=== PATIENT | female | born 2000 | race Caucasian/White ===

== ENCOUNTER 2018-12-13 15:02 | Outpatient (CLI) | payer OTHER ==
--- NOTE | 2018-12-13 15:54 | ULT ---
Bilateral renal ultrasound CLINICAL INDICATION: Patient with right flank pain for one week and hematuria. Patient is 6 1/2 months . COMPARISON: None FINDINGS: Right kidney: There is moderate right hydronephrosis of uncertain etiology based on this examination. No renal mass or renal calculus is identified on the right.The right kidney measures 10.4 cm x 6.1 cm. Left kidney: There is no evidence of a renal mass, renal calculus, or hydronephrosis. The left kidney measures 10.8 cm x 4.9 cm. Urinary bladder: Partially distended and grossly normal in appearance. The left ureteral jet is visua lized. agricultural technician questions trace right ureteral jet visualized, but this is difficult to definitely discern on this exam. IMPRESSION: 1. Moderate right hydronephrosis, and the degree of hydronephrosis is more than typically expected fo r an intrauterine gestation. The exact etiology is uncertain. 2. Normal-appearing left kidney without hydronephrosis. 3. Findings discussed with Dr. Cleveland on 12/13/2018 at 1549 hours.
== END 2018-12-13 15:03 | disposition home or self-care (01) ==
LOC: BICULT 15:02
PROVIDERS: ATTEND Advanced Practice Midwife
DX: R31.9 Hematuria, unspecified (principal); N13.30 Unspecified hydronephrosis
CPT/HCPCS: 76770

== ENCOUNTER 2018-12-30 19:53 | Inpatient (IN) | payer OTHER ==
[2018-12-30 20:53] LABS: #Eosinphils 0.3 thou/uL (0.0-0.7); #Lymphocytes 2.7 thou/uL (1.20-3.40); #Monocytes 1.1 thou/uL (0.11-0.59); #Neutrophils 10.3 thou/uL (1.40-6.50); %Basophils 0.1 % (0.0-1.0); %Eosinophils 1.8 % (0.0-10.0); %Lymphocytes 18.7 % (28.0-48.0); %Monocytes 7.4 % (0.0-4.0); %Neutrophils 71.9 % (31.0-61.0); Hemoglobin 11.1 g/dL (12.0-16.0); Mean Corpuscular HGB CONC 33.6 g/dL (32.0-36.0); Mean Corpuscular Hemoglobin 30.1 pg (25.0-35.0); Mean Corpuscular Volume 89.7 fL (78.0-98.0); Mean Platelet Volume 7.6 fL (7.4-10.4); Platelet Count 243 thou/uL (130-400); RBC Distribution Width 11.8 % (11.5-14.5); Red Blood Cell (RBC) Count 3.69 mill/uL (4.00-5.20); White Blood Cell (WBC) Count 14.3 thou/uL (4.8-10.8)
[2018-12-30 21:19] LABS: ALT (SGPT) 11 U/L (8-55); AST (SGOT) 11 U/L (5-34); Albumin 3.7 g/dL (3.5-5.0); Alkaline Phosphatase 100 U/L (40-100); Anion Gap 11 mmol/L (10-20); BUN (Urea Nitrogen) 7 mg/dL (7.0-18.7); Bilirubin, Total 0.2 mg/dL (0.2-1.2); Calc. Creatinine Clearance 0 mL/min (70-130); Calcium 8.6 mg/dL (7.8-10.44); Carbon Dioxide 21 mmol/L (22-29); Chloride 105 mmol/L (98-107); Estimated GFR-MDRD Greater than 90; Glucose 78 mg/dL (70-105); Lipase 23 U/L (8-78); Potassium 3.7 mmol/L (3.5-5.1); Protein, Total 6.7 g/dL (6.0-8.3); Sodium 133 mmol/L (136-145)
[2018-12-30 21:22] LABS: PTT 27.2 SEC (22.9-36.1); Prothrombin Time 13.3 SEC (12.0-14.7)
[2018-12-30 21:57] LABS: Bilirubin Negative (Negative); Blood, Urine Small (Negative); Glucose, Urine (Dipstick) Negative (Negative); Leukocyte Trace (Negative); Nitrite Negative (Negative); Protein, Urine (Dipstick) 30 mg/dL (Neg-Trace); Urobilinogen 0.2 mg/dL (Less than 2)
[2018-12-30 22:01] LABS: Clarity Hazy (Clear)
[2018-12-30 22:02] LABS: Bacteria/HPF None Seen HPF (None Seen); Squamous Epithelial 0-3 HPF (0-3)
--- NOTE | 2018-12-30 22:15 | PDOC.EVN ---
Event Note - Event Note Event Note: OBGYN Patient seen at bedside at 2145 Dictated Admitted to await IR perc tube tomorrow for obstructive nephropathy at 28 weeks.
[2018-12-30] MEDS ORDERED: cefTRIAXone\\ROCEPHIN 1 GM VIAL ONE (22:18)
--- NOTE | 2018-12-30 22:46 | HP ---
TIME OF EVALUATION: 2145 hours until 2200 hours. LOCATION: ER. BED: 7. REASON FOR EVALUATION: 1. The patient with known right hydronephrosis due to ureteral obstruction from dextrorotation of the uterus. 2. The patient of Betsy Megha. HISTORY OF PRESENT ILLNESS: This is a 18-year-old G2, P1, at 28 weeks and 2 days with a stated EDC of 03/22. She states that she was having some increase in lower back discomfort, but denies any fever. She saw Dr. Negrito Mcintyre with Urology this last , who recommended a percutaneous nephrostomy tube. She has had no complications at this time. She has good movement. She just took her 1 hour glucose tolerance test earlier last week, but she does not have the results of that. REVIEW OF SYSTEMS: Complete review of systems was checked and is otherwise negative unless specified in the HPI. PAST MEDICAL HISTORY: Negative. PAST SURGICAL HISTORY: Includes; 1. A cheek biopsy (oral biopsy) as a child, which was benign. 2. She also had a history of a stomach "biopsy" at age 12, which was benign. ALLERGIES: NONE. OB HISTORY: She had a vaginal 18 months ago. SOCIAL HISTORY: Otherwise negative. PHYSICAL EXAMINATION: VITAL SIGNS: Stable. She is afebrile. Pulse is in the 80s to 90s, blood pressure is in the 100s/60s. GENERAL: Clinically, she is in no acute distress. ABDOMEN: Soft and nontender and size consistent with dates. No evidence of costovertebral angle tenderness by initial ED exam confirmed by me. PELVIC: No evidence of vaginal bleeding grossly, although pelvic exam was deferred. MONITOR: heart tones were checked by Doppler and were within normal limits. LABORATORY ASSESSMENT: The patient has a white blood cell count of 14.3, PT and PTT that were normal, and a creatinine that was 0.53 by serum, AST and ALT were also negative. She did have a UA sent, which just shows some trace leukocyte esterase, some small blood, and no urine bacteria seen. ASSESSMENT: This is a multigravida at 28 weeks and 2 days. The patient of Betsy Cleveland with known right ureteral obstruction due to dextrorotation of the uterus. No evidence of pyelonephritis at this time. I have notified Dr. Negrito Mcintyre via text and have communicated with him. He will see her tomorrow. The plan is to do Interventional Radiology with a percutaneous tube tomorrow. I will keep her n.p.o. PLAN: 1. Admit to the hospital for procedure tomorrow. 2. Urology to see patient tomorrow. 3. Interventional Radiology procedure sometime tomorrow. 4. No evidence of OB complication at this time. 5. No evidence of pyelonephritis at this time. Job ID: [id number]
[2018-12-31 00:54] VITALS: BMI 25.3
--- NOTE | 2018-12-31 05:47 | PDOC.EVN ---
Event Note - Event Note Event Note: HD2 28 weeks 3 days I walked into the room to see her at 0545 but patient was asleep (did not feel it needed to wake her). I asked the RN about her status: Patient has been stable, and resting through the night Vitals reviewed by Virginia BHAKTA No evidence PTL or pyelo A/P: Right ureteral obstruction from uterine position, pending IR perc tube sometime today. Dr Garcia to see today.
[2018-12-31] MEDS ORDERED: Sodium Chloride 0.9% 10 ML ONE (10:35)
[2018-12-31] MEDS ORDERED: Fentanyl 100 MCG/2 ML VIAL ONE (14:25)
[2018-12-31] MEDS ORDERED: Midazolam HCl 2 mg/2 ml Vial ONE (14:26)
--- NOTE | 2018-12-31 15:28 | SPC ---
EXAM: SPC NEPHROS CATH NEW ACCESS PROVIDED CLINICAL HISTORY: Patient with intrauterine gestation and right renal colic. Patient has moderate right hydronephrosis with worsening pain. Percutaneous right nephrostomy tube was requested. COMPARISON: Renal ultrasound 12/13/2018. FINDINGS: The procedure including the risks and complications were explained to the patient, and informed conse nt was obtained. Patient was placed on the fluoroscopic table in the left lateral decubitus position as the patient was unable to be placed in a prone or oblique position due to intrauterine ge station. Limited sonographic evaluation of the right kidney was performed again demonstrating moderate hydronephrosis. An area was marked overlying a posterior calyx midportion right kidney. The area was meticulously prepped and draped in the usual sterile fashion. The skin and subcutaneous tissues were infiltrated with 1% lidocaine for local anesthesia. Utilizing concurrent real time ultrasound guidance, the posterior calyx midportion right kidney was accessed utilizing micropuncture technique. There was a return of clear urine. A 0.018 inch guidewire was plac ed, but there was difficulty in placement of the guidewire utilizing sonography. As result, a small amount of contrast was injected followed by fluoroscopy. The guidewire was coiled in the renal pelvis . The needle was exchanged for a 5 Bolivian introducer sheath. A 0.035 inch Amplatz guidewire was coiled within the renal pelvis. Introducer sheath was exchanged for an 8 [place]ian tissue dilator followed by placement of an 8 Bolivian n ephrostomy tube. The distal portion of the nephrostomy tube was positioned in the renal pelvis. Final fluoroscopic image was obtained. The catheter was placed to gravity drainage and sutured in hosea ce utilizing 2-0 Ethilon suture material. The patient tolerated the procedure well and without immediate complication. Cardiac Doppler was perf ormed of the fetus before and after the procedure, and a heart rate of 150 bpm was obtained preprocedure as well as postprocedure. Fluoroscopy: Total fluoroscopy time-1.7 minutes Total dose 14,685 mGy centimeter squared IMPRESSION: 1. Moderate right hydronephrosis. 2. Technically successful right nephrostomy tube placement.
[2018-12-31] MEDS ORDERED: HYDROcodone/Acetaminophen 5/325 mg Tablet PO PRN (15:57)
[2018-12-31 16:58] VITALS: BP 111/63; TEMP 98.3
--- NOTE | 2019-01-01 00:59 | CON ---
DATE OF CONSULTATION: 12/31/2018 CONSULTING PHYSICIAN: Dr. Castillo consulted Dr. Mcintyre. REASON FOR CONSULTATION: Hydronephrosis. HISTORY OF PRESENT ILLNESS: Mrs. Underwood is a 18-year-old white female, currently G2, P1, 28 weeks, who has a history of hydronephrosis on the right side. This had occurred previously with her last and after she delivered, she underwent a CT scan, which demonstrated no etiology of the hydronephrosis and that was most likely secondary to uterine positioning. The problem started again with an ultrasound demonstrating a recurrent hydronephrosis on the right with some discomfort and flank pain. She had seen me as an outpatient and we had scheduled her for an elective nephrostomy tube placement. Unfortunately, she came in to the emergency room last night with severe right flank pain with nausea and vomiting, but no white count or fevers. She had no evidence of urinary tract infection. Due to the vomiting and pain, she was admitted to the hospital and I have been asked to see her, otherwise. She states that she is feeling a little bit better after receiving pain medication and IV fluids. She has good movements. She has been admitted by the obstetric service and she does not have any concerning findings from a or gestational standpoint. PAST MEDICAL HISTORY: None. PAST SURGICAL HISTORY: 1. Cheek biopsy. 2. Stomach biopsy. ALLERGIES: NONE. HOME MEDICATIONS: Multivitamin. FAMILY HISTORY: Noncontributory. SOCIAL HISTORY: Negative for tobacco, alcohol, or illicit drugs. REVIEW OF SYSTEMS: A 12-point review of systems is reviewed and otherwise negative other than what was commented on the HPI. PHYSICAL EXAMINATION: VITAL SIGNS: Stable. The patient is afebrile. GENERAL: No apparent distress, communicative and alert. CARDIOVASCULAR: Regular rate and rhythm. Normal S1 and S2. Symmetric pulses. HEENT: Normocephalic, atraumatic. Pupils are symmetric and round. Trachea, midline. Moist mucous membranes. CHEST: No increased work of breathing. Symmetric expansion. LUNGS: Clear anteriorly. ABDOMEN: Soft, nontender. Gravid uterus. No rebound or guarding. BACK: Right CVA tenderness. No left CVA tenderness. GENITOURINARY: Deferred at this time. EXTREMITIES: Trace edema. No clubbing or cyanosis. MUSCULOSKELETAL: No joint deformity or joint erythema noted. Full range of motion. SKIN: Warm and dry. Good turgor. No rashes or lesions. NEUROLOGIC: Cranial nerves 2 through 12 are grossly intact. No focal sensory or motor deficits identified. PSYCHIATRIC: Alert and oriented x3. Appropriate mood and affect. LABORATORY EVALUATION: A full set of labs is in the [employer] system, which I have reviewed. Of note, the patient's white count is 14.3 with a creatinine of 0.53. Urinalysis demonstrates 7 to 10 rbc's, 4-6 wbc's, no bacteria, leukocyte esterase trace, nitrite negative. Urine culture collected at admission is no growth at 12 hours, although culture is proceeding. ASSESSMENT AND PLAN: A 18-year-old white female with right-sided hydronephrosis, most likely secondary to uterine positioning with now uncontrolled flank pain with vomiting. We had already planned for outpatient nephrostomy tube to deal with chronic pain and prevent renal deterioration. Now that she has been admitted with symptoms, we will plan for a nephrostomy tube placement on this admission. She is already n.p.o. She has already received a dose of Rocephin. I have spoken with Dr. Castro, who is currently covering for Dr. Castillo for the morning. After she gets her nephrostomy tube placed, she will need to start nitrofurantoin prophylaxis at 50 mg once a day. She can be discharged if she is stable after the procedure, and I will follow up in an outpatient basis. 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 Once she has delivered, we will plan for removal of nephrostomy tube with another CT scan to ensure that there are no stones or other underlying etiologies. If none are found, then again is most likely due to uterine positioning. Job ID: [id number]
--- NOTE | 2019-01-01 07:29 | DIS ---
DATE OF ADMISSION: 12/30/2018 DATE OF DISCHARGE: 12/31/2018 TIME OF SERVICE: 1630 hours. ADMITTING DIAGNOSIS: Right hydronephrosis of . IN-HOSPITAL PROCEDURES: Right percutaneous nephrostomy. SUMMARY OF HOSPITAL COURSE: The patient is a 18-year-old, G2, P1, at 28 weeks and 3 days with EDC of 1220. She has a known history of uterine malrotation that leads to near-total right ureteral obstruction during . She presented with symptomatology, and decision was made to proceed with percutaneous nephrostomy on the right. She underwent percutaneous nephrostomy by Dr. Ezio Ortega on 12/31 without difficulty. Postoperatively, the patient tolerated the pain well and was tolerating p.o. She will be discharged home on Macrodantin 50 p.o. at bedtime as per Dr. Mcintyre to prevent UTI as well as [place] #20. She will have follow up with both Dr. Mcintyre and Betsy Cleveland within the next 1 to 2 weeks. The patient has emergency room precautions. Job ID: [id number]
== END 2018-12-31 18:00 | disposition home or self-care (01) | DRG 776 ==
LOC: ERS 19:53 → 3SW 21:48
PROVIDERS: ADMIT Obstetrics & Gynecology; ATTEND Obstetrics & Gynecology
PROC: 0T9330Z Drainage of Right Kidney Pelvis with Drainage Device, Percutaneous Approach (ICD-10-PCS; principal; 2018-12-31)
DX: O99.89 Other specified diseases and conditions complicating pregnancy, childbirth and the puerperium (principal); N13.30 Unspecified hydronephrosis; N36.8 Other specified disorders of urethra; Z3A.28 28 weeks gestation of pregnancy
CPT/HCPCS: 36415; 50430; 50432; 80053; 81003; 81015; 83690; 85025; 85610; 85730; 86900; 86901; 87086; 96361; 96374; J0696; J2250; J3010

== ENCOUNTER 2019-01-05 13:58 | Emergency (ER) | payer OTHER ==
[2019-01-05 16:50] LABS: #Eosinphils 0.2 thou/uL (0.0-0.7); #Lymphocytes 2.2 thou/uL (1.20-3.40); #Monocytes 1.1 thou/uL (0.11-0.59); #Neutrophils 11.5 thou/uL (1.40-6.50); %Basophils 0.3 % (0.0-1.0); %Eosinophils 1.2 % (0.0-10.0); %Lymphocytes 14.4 % (28.0-48.0); %Monocytes 7.5 % (0.0-4.0); %Neutrophils 76.7 % (31.0-61.0); Mean Corpuscular HGB CONC 33.7 g/dL (32.0-36.0); Mean Corpuscular Hemoglobin 30.2 pg (25.0-35.0); Mean Corpuscular Volume 89.6 fL (78.0-98.0); Mean Platelet Volume 7.8 fL (7.4-10.4); Platelet Count 251 thou/uL (130-400); RBC Distribution Width 11.7 % (11.5-14.5); Red Blood Cell (RBC) Count 3.96 mill/uL (4.00-5.20)
[2019-01-05 17:10] LABS: Bacteria/HPF 4+ HPF (None Seen); Bilirubin Negative (Negative); Blood, Urine 2+ (Negative); Clarity Turbid (Clear); Glucose, Urine (Dipstick) Normal (Negative); Leukocyte 250 Leu/uL (Negative); Nitrite 2+ (Negative); Protein, Urine (Dipstick) 30 mg/dL (Neg-Trace); RBC/HPF Greater than 50 HPF (0-3); Squamous Epithelial 0-3 HPF (0-3); Urobilinogen Normal mg/dL (Less than 2)
[2019-01-05 17:11] LABS: ALT (SGPT) 12 U/L (8-55); AST (SGOT) 13 U/L (5-34); Albumin 3.9 g/dL (3.5-5.0); Alkaline Phosphatase 116 U/L (40-100); Anion Gap 12 mmol/L (10-20); BUN (Urea Nitrogen) 7 mg/dL (7.0-18.7); Bilirubin, Total Less than 0.2 mg/dL (0.2-1.2); Calc. Creatinine Clearance 0 mL/min (70-130); Calcium 9.6 mg/dL (7.8-10.44); Carbon Dioxide 24 mmol/L (22-29); Chloride 104 mmol/L (98-107); Estimated GFR-MDRD Greater than 90; Globulin 3.4 g/dL (2.4-3.5); Glucose 72 mg/dL (70-105); Potassium 3.8 mmol/L (3.5-5.1); Protein, Total 7.3 g/dL (6.0-8.3); Sodium 136 mmol/L (136-145)
[2019-01-05] MEDS ORDERED: cefTRIAXone\\ROCEPHIN 1 GM VIAL ONE (17:32)
--- NOTE | 2019-01-05 17:33 | ULT ---
RENAL ULTRASOUND: 01/05/19 INDICATION: Nephrostomy tube pain. Reference is made to 12/13/18 exam. FINDINGS: Evaluation of each kidney reveals no evidence of hydronephrosis. There has been resolution of prior r ight side hydronephrosis. No perinephric fluid of significance is seen. There is documentation of cardiac activity at 157 beats per minute. IMPRESSION: No overt hydronephrosis of either kidney. POS: NWK
== END 2019-01-05 18:25 | disposition home or self-care (01) ==
LOC: ERS 13:58
DX: O9A.213 Injury, poisoning and certain other consequences of external causes complicating pregnancy, third trimester (principal); T83.84XA Pain due to genitourinary prosthetic devices, implants and grafts, initial encounter; Z3A.29 29 weeks gestation of pregnancy
CPT/HCPCS: 36415; 76770; 80053; 81003; 81015; 83605; 85025; 87077; 87086; 87186; J0696

== ENCOUNTER 2019-01-09 11:46 | Day surgery (SDC) | payer OTHER ==
--- NOTE | 2019-01-09 14:13 | SPC ---
Exam: Nephrostomy tube check HISTORY: Right-sided hydronephrosis. Patient is 30 weeks Exposure 1.2 minutes; 8586 mg/sq cm FINDINGS: Successful right nephrostomy tube check. After using Amplatz wire twice, the nephrostomy tu be did spontaneously draining urine. Contrast was administered and demonstrated that the pigtail is within the renal pelvis. There is dilatation of the calyx and ureter. IMPRESSION: Appropriate positioning of a right nephrostomy. Nephrostomy tube is patent.
[2019-01-09 15:49] VITALS: BP 101/71; TEMP 97.7
== END 2019-01-09 13:35 | disposition home or self-care (01) ==
LOC: SPEC 11:46
PROVIDERS: ATTEND Urology
DX: O99.89 Other specified diseases and conditions complicating pregnancy, childbirth and the puerperium (principal); N13.30 Unspecified hydronephrosis; Z3A.30 30 weeks gestation of pregnancy
CPT/HCPCS: 50431

== ENCOUNTER 2019-01-10 20:36 | Inpatient (IN) | payer OTHER ==
[2019-01-10] MEDS ORDERED: cefTRIAXone\\ROCEPHIN 1 GM VIAL ONE (21:03)
[2019-01-10] MEDS ORDERED: Acetaminophen 500 MG TAB ONE (21:05)
[2019-01-10 21:09] LABS: #Eosinphils 0.1 thou/uL (0.0-0.7); #Lymphocytes 1.5 thou/uL (1.20-3.40); #Monocytes 1.4 thou/uL (0.11-0.59); #Neutrophils 11.1 thou/uL (1.40-6.50); %Basophils 0.2 % (0.0-1.0); %Eosinophils 0.4 % (0.0-10.0); %Lymphocytes 10.4 % (28.0-48.0); %Monocytes 9.7 % (0.0-4.0); %Neutrophils 79.4 % (31.0-61.0); Hemoglobin 11.6 g/dL (12.0-16.0); Mean Corpuscular HGB CONC 34.5 g/dL (32.0-36.0); Mean Corpuscular Hemoglobin 29.6 pg (25.0-35.0); Mean Platelet Volume 7.3 fL (7.4-10.4); Platelet Count 239 thou/uL (130-400); RBC Distribution Width 11.9 % (11.5-14.5); Red Blood Cell (RBC) Count 3.92 mill/uL (4.00-5.20)
[2019-01-10] MEDS ORDERED: MEROPENEM 1 GM/50 ML 1 GM in Premix Bag 1 BAG IVPB SCH (21:15)
[2019-01-10 21:31] LABS: Bilirubin Negative (Negative); Blood, Urine 2+ (Negative); Clarity Turbid (Clear); Glucose, Urine (Dipstick) Normal (Negative); Leukocyte 500 Leu/uL (Negative); Nitrite Negative (Negative); Protein, Urine (Dipstick) 70 mg/dL (Neg-Trace); Urobilinogen Normal mg/dL (Less than 2)
[2019-01-10 21:33] LABS: ALT (SGPT) 12 U/L (8-55); AST (SGOT) 13 U/L (5-34); Albumin 3.8 g/dL (3.5-5.0); Alkaline Phosphatase 179 U/L (40-100); Anion Gap 12 mmol/L (10-20); BUN (Urea Nitrogen) 7 mg/dL (7.0-18.7); Bilirubin, Total 0.4 mg/dL (0.2-1.2); Calc. Creatinine Clearance 0 mL/min (70-130); Calcium 9.2 mg/dL (7.8-10.44); Carbon Dioxide 22 mmol/L (22-29); Chloride 101 mmol/L (98-107); Estimated GFR-MDRD Greater than 90; Globulin 3.7 g/dL (2.4-3.5); Glucose 91 mg/dL (70-105); Potassium 3.3 mmol/L (3.5-5.1); Protein, Total 7.5 g/dL (6.0-8.3); Sodium 132 mmol/L (136-145)
[2019-01-10 21:41] LABS: Bacteria/HPF 2+ HPF (None Seen); Squamous Epithelial 0-3 HPF (0-3)
--- NOTE | 2019-01-10 22:07 | ULT ---
US Renal Bilateral STANDARD History: Pain Comparison: Renal ultrasound January 05, 2019 Findings: Real-time grayscale and color evaluation of the kidneys and urinary bladder was performed. Satisfactory location of the right nephrostomy in the renal pelvis. No renal mass, hydronephrosis, or abnormal calcifications. Impression: Satisfactory location of the right nephrostomy. No residual hydronephrosis.
[2019-01-11] MEDS ORDERED: Ondansetron ODT 4 MG TAB SL PRN (00:27)
[2019-01-11] MEDS ORDERED: Ondansetron PF 4 MG/2 ML Vial IVP PRN (00:27)
[2019-01-11] MEDS ORDERED: Sodium Chloride 0.9% 1,000 ML IV SCH (00:30)
[2019-01-11 01:56] VITALS: BMI 25.4
[2019-01-11] MEDS ORDERED: Bisacodyl 5 MG TAB PO PRN (06:41)
[2019-01-11] MEDS ORDERED: Calcium Carbonate 500 MG ChewTAB PO PRN (06:41)
--- NOTE | 2019-01-11 07:10 | HP ---
TIME OF SERVICE: 635. REASON FOR ADMISSION: Pyelonephritis, right-sided with sepsis at 30 weeks gestation, status post right percutaneous nephrostomy with multidrug resistant Pseudomonas. HISTORY OF PRESENT ILLNESS: Ms. Underwood is well known to the service. She is a 18-year-old, G2, P1, EDC 03/22, at 30 weeks gestation, who had percutaneous nephrostomies placed approximately a week ago. She was put on Macrodantin suppression. However, urine has grown Pseudomonas on 01/05 that was sensitive to cephalosporins as well as meropenem. She presented to the emergency room with fever and tachycardia and is admitted for care by the OB service because of her with consultation of Dr. Mcintyre, Urology. TELECOMMUNICATIONS LINESWORKER HISTORY: Prior . During that , she had right hydronephrosis and ureteral obstruction from dextrorotation of the uterus as well. PAST MEDICAL HISTORY: Negative. PAST SURGICAL HISTORY: Percutaneous nephrostomy, cheek biopsy, stomach biopsy. ALLERGIES: DENIES. MEDICATIONS: vitamins, Macrobid. SOCIAL HISTORY: Denies tobacco, alcohol, or IV drug use. FAMILY HISTORY: Noncontributory. REVIEW OF SYSTEMS: Noncontributory . PHYSICAL EXAMINATION: VITAL SIGNS: On presentation to the emergency room, the patient's temperature was 100.4, current temperature is 99.0, pulse 105, blood pressure 104/58. HEENT: Within normal limits. LUNGS: Clear to auscultation bilaterally. HEART: Regular rate and rhythm. ABDOMEN: Soft and nontender. Fundal height 31. FHT is 160s. Right percutaneous nephrostomy is in place and draining well with clear urine. EXTREMITIES: No clubbing, cyanosis, or edema. LABORATORY DATA: The patient's white count 14.0, which is actually consistent with previous presentations. Neutrophils are 79%, hematocrit is 33%, normal platelet count. Base met reveals slightly hyponatremic at 132, potassium 3.3. Urinalysis was turbid with 500+ leukocyte esterase and 7 to 10 WBCs per high-power field with 2+ bacteria. IMPRESSION: Pseudomonas urosepsis at 30 weeks gestation, status post right percutaneous nephrostomy. PLAN: Admission, consultation with Dr. Mcintyre, meropenem and Rocephin. We will correct hypokalemia. Job ID: [id number]
[2019-01-11] MEDS ORDERED: MEROPENEM 1 GM/50 ML 1 GM in Premix Bag 1 BAG IVPB SCH (09:00)
[2019-01-11] MEDS ORDERED: Meropenem 1 GM in Sodium Chloride 0.9% 100 ML IVPB SCH (09:00)
[2019-01-11] MEDS ORDERED: FLU VACC QS2019-20(6MOS UP)/PF 60 MCG/0.5 ML SYRINGE IM ONE (09:00)
[2019-01-11] MEDS: Acetaminophen 325 MG TAB PO PRN ×2 (09:27→21:09)
[2019-01-11] MEDS: Potassium Chloride 20 MEQ in Lactated Ringer's 1,000 ML IV SCH ×2 (10:26→21:09)
[2019-01-11] MEDS: MEROPENEM 1 GM/50 ML 1 GM in Premix Bag 1 BAG IVPB SCH ×2 (13:35→21:50)
[2019-01-11] MEDS ORDERED: cefTRIAXone\\ROCEPHIN 2 GM in Sodium Chloride 0.9% 100 ML IVPB SCH (18:00)
[2019-01-11] MEDS ORDERED: cefTRIAXone\\ROCEPHIN 1 GM in Sodium Chloride 0.9% 100 ML IVPB SCH (18:30)
[2019-01-11] MEDS ORDERED: Sodium Chloride 0.9% 10 ML ONE (18:41)
--- NOTE | 2019-01-11 19:33 | CON ---
DATE OF CONSULTATION: 01/11/2019 CONSULTING: Dr. Castro. CONSULTED: Dr. Mcintyre. REASON FOR CONSULTATION: Complicated urinary tract infection in . HISTORY OF PRESENT ILLNESS: Ms. Underwood is a 18-year-old white female, who is well known to me from a previous admission and I am currently seeing her for this secondary to hydronephrosis. She is currently G2, P1, at 30 weeks' gestation, who had development of right-sided hydronephrosis and microhematuria. This had occurred almost identically on her prior with no stone encountered. Due to symptoms of nausea, vomiting, and persistent pain, she had a nephrostomy tube placed on her right side. She had issues with nephrostomy clogging and recently had it unclogged in Interventional Radiology. She had seen us in our office to learn how to flush her nephrostomy tube. She just did this yesterday and then began having temperatures up to 101 today, so she came into the hospital where she was admitted. A urine culture was taken from the nephrostomy tube, which is currently growing Pseudomonas, but susceptibilities are not yet available. She is currently being treated with meropenem and Rocephin and is stating that she is feeling much better. She is no longer having temperatures and states that her pain is gone down significantly. Her heart rate is also better. PAST MEDICAL HISTORY: Prior hydronephrosis with . PAST SURGICAL HISTORY: 1. Nephrostomy tube. 2. Cheek biopsy. 3. Stomach biopsy. ALLERGIES: NONE. CURRENT MEDICATIONS: 1. Prophylactic Macrobid once a day. 2. vitamins. SOCIAL HISTORY: The patient denies tobacco, alcohol, or IV drug use. FAMILY HISTORY: Noncontributory. REVIEW OF SYSTEMS: A 12-point review of system was reviewed and negative otherwise other than what was commented on the HPI. PHYSICAL EXAMINATION: VITAL SIGNS: Temperature 98.4, pulse 92, respirations 16, blood pressure 96/54, and saturation 98% on room air. GENERAL: No apparent distress. Communicative and alert. CARDIOVASCULAR: Regular rate and rhythm. Normal S1 and S2. Symmetric pulses. HEENT: Normocephalic and atraumatic. Pupils are symmetric and round. Trachea midline. Moist mucous membranes. CHEST: No increased work of breathing. Symmetric expansion. LUNGS: Clear anteriorly. ABDOMEN: Gravid uterus. Normal bowel sounds. No rebound tenderness or guarding. Soft, nontender, and nondistended. : Exam is deferred at this time. BACK: Nephrostomy tube currently in good location, draining clear yellow urine. EXTREMITIES: Trace edema bilaterally. No clubbing or cyanosis. SKIN: Warm and dry. No rashes or lesions. Good turgor. LYMPH NODES: There is no cervical, supraclavicular, or inguinal lymphadenopathy. PSYCHIATRIC: Alert and oriented x3. Appropriate mood and affect. NEUROLOGIC: Cranial nerves 2 through 12 grossly intact. No focal or sensory motor deficits identified. LABORATORY EVALUATION: The full set of labs are in the [employer] system, which I have reviewed. Of note, white count is up to 14,000, hemoglobin of 11.6. Creatinine of 0.60. Urinalysis demonstrates 2+ bacteria, 7 to 10 white cells, 4 to 6 red cells, and urine culture again is growing Pseudomonas. Susceptibilities to follow. Blood cultures currently are negative to date. ASSESSMENT AND PLAN: A 18-year-old white female with Pseudomonas urinary tract infection. Macrobid does not cover against Pseudomonas, which is likely why this pathogen has started to cause a problem. Unfortunately, the best oral antibiotic agent for Pseudomonas is Cipro, which she cannot take currently while . I would recommend continuation of IV antibiotics as she is currently on until susceptibilities are back. If she has susceptibilities to Rocephin, she can be discharged after the weekend and we can continue to give her ceftriaxone injections in the office in Urology Monday through Monday to complete 7 days for complicated urinary tract infection. However, if there are no susceptibilities to Rocephin or if she must remain on meropenem or other IV antibiotic, then she will either need to consider 7-day hospital stay with IV antibiotics or insertion of a PICC line with home IV antibiotics. We will continue to follow along and make any recommendations as necessary. I will plan to see her in my office next week, after which point we will schedule her for a routine nephrostomy tube change coming up in approximately 1 week or so. Job ID: [id number]
[2019-01-11] MEDS: cefTRIAXone\\ROCEPHIN 1 GM in Sodium Chloride 0.9% 100 ML IVPB SCH (21:01)
[2019-01-12 05:10] LABS: #Eosinphils 0.2 thou/uL (0.0-0.7); #Lymphocytes 2.2 thou/uL (1.20-3.40); #Monocytes 1.1 thou/uL (0.11-0.59); #Neutrophils 7.2 thou/uL (1.40-6.50); %Basophils 0.3 % (0.0-1.0); %Eosinophils 1.5 % (0.0-10.0); %Lymphocytes 20.9 % (28.0-48.0); %Monocytes 10.5 % (0.0-4.0); %Neutrophils 66.8 % (31.0-61.0); Hemoglobin 9.7 g/dL (12.0-16.0); Mean Corpuscular HGB CONC 33.8 g/dL (32.0-36.0); Mean Corpuscular Hemoglobin 30.3 pg (25.0-35.0); Mean Corpuscular Volume 89.7 fL (78.0-98.0); Mean Platelet Volume 7.2 fL (7.4-10.4); Platelet Count 217 thou/uL (130-400); RBC Distribution Width 11.8 % (11.5-14.5); Red Blood Cell (RBC) Count 3.21 mill/uL (4.00-5.20); White Blood Cell (WBC) Count 10.7 thou/uL (4.8-10.8)
[2019-01-12] MEDS: Potassium Chloride 20 MEQ in Lactated Ringer's 1,000 ML IV SCH ×2 (05:19→08:35)
[2019-01-12 05:31] LABS: Anion Gap 8 mmol/L (10-20); BUN (Urea Nitrogen) 5 mg/dL (7.0-18.7); Calc. Creatinine Clearance 205 mL/min (70-130); Carbon Dioxide 21 mmol/L (22-29); Chloride 109 mmol/L (98-107); Estimated GFR-MDRD Greater than 90; Glucose 83 mg/dL (70-105); Potassium 3.9 mmol/L (3.5-5.1); Sodium 134 mmol/L (136-145)
[2019-01-12] MEDS: MEROPENEM 1 GM/50 ML 1 GM in Premix Bag 1 BAG IVPB SCH ×3 (06:33→21:13)
--- NOTE | 2019-01-12 07:44 | PRG ---
DATE OF SERVICE: 01/12/2019 SUBJECTIVE: The patient is a 18-year-old female with an intrauterine at 30 weeks and 1 day, admitted to the hospital for complications of a right nephrostomy tube, percutaneous nephrostomy tube that she had placed for obstruction from the . The patient had not been feeling well, had fever, and placed on meropenem and Rocephin due to urine cultures positive for Pseudomonas. The patient since admission to the hospital, has had no recurrent febrile episodes. Temperature over the last 24 hours has maxed out at 99 degrees. OBJECTIVE: VITAL SIGNS: Current temperature is 97.9, blood pressure 99/58, pulse is 75, respiratory rate of 20. GENERAL: She appears to be in no acute distress. She is alert and oriented, cooperative, and pleasant to interact with. BACK: She has no CVA tenderness. ABDOMEN: No abdominal tenderness. EXTREMITIES: Nontender, nonedematous. LABORATORY DATA: Urine cultures positive for Pseudomonas. Blood cultures positive for Pseudomonas pseudo aeruginosa. Awaiting on sensitivities from these cultures. I did run into Ani Betsy Megha, her primary OB, who reported a previous culture recently finalized and was positive for the same sensitivity to cephalosporins, fluoroquinolones, meropenem. ASSESSMENT AND PLAN: The patient is a 18-year-old female with blood cultures and urine cultures positive for Pseudomonas aeruginosa with sensitivity proven to be pansensitive. Urology has been following this patient and had recommended 1 week of IV antibiotics with a plan for IM injections daily should she be sensitive to Rocephin. With cultures being positive in her blood, I am not sure how the plan has changed for them, but we will be awaiting their recommendations. The patient clinically appears to be doing really well and would suspect that she can still go home with the current plan in place. We will be awaiting Urology's recommendations. Job ID: [id number]
[2019-01-12] MEDS ORDERED: Sodium Chloride 0.9% 10 ML ONE ×2 (20:29→20:44)
[2019-01-12] MEDS: cefTRIAXone\\ROCEPHIN 1 GM in Sodium Chloride 0.9% 100 ML IVPB SCH (20:35)
[2019-01-13] MEDS: MEROPENEM 1 GM/50 ML 1 GM in Premix Bag 1 BAG IVPB SCH ×3 (05:37→22:21)
--- NOTE | 2019-01-13 07:12 | PRG ---
DATE OF SERVICE: 01/13/2019 TIME OF SERVICE: 0640 hours. SUBJECTIVE: Ms. Underwood is resting comfortably. She is 30 weeks' gestation with complicated urinary tract infection and urinary sepsis with positive blood cultures and urine cultures for Pseudomonas sensitive to meropenem and a right percutaneous nephrostomy. She remains afebrile and reports an active fetus. Denies contractions. PHYSICAL EXAMINATION: LUNGS: Clear to auscultation bilaterally. HEART: Regular rate and rhythm. ABDOMEN: Soft and nontender. Percutaneous nephrostomy is draining. EXTREMITIES: No clubbing, cyanosis, or edema. VITAL SIGNS: Temperature 98, T-max 98.2, pulse 90, respirations 16, blood pressure 191/52. IMPRESSION: Complicated urinary tract infection with urinary sepsis at 30 weeks' gestation with percutaneous nephrostomy on the right and Pseudomonas aeruginosa sensitive to Rocephin and meropenem, both of which the patient is on hospital day #3 of treatment. PLAN: As per Dr. Mcintyre, we will continue IV antibiotics until Monday. Anticipate him following up with the patient on Monday and anticipating discharge home with daily Rocephin at his office for a total of 7 days treatment. Job ID: [id number]
[2019-01-13] MEDS: Ferrous Sulfate 325 MG TAB PO SCH (07:51)
[2019-01-13] MEDS: Prenatal Vitamin 1 TAB PO SCH (07:51)
[2019-01-13] MEDS: Lactated Ringer's 1,000 ML IV SCH (17:07)
[2019-01-13] MEDS ORDERED: Sodium Chloride 0.9% 10 ML ONE ×3 (20:12→22:05)
[2019-01-13] MEDS: cefTRIAXone\\ROCEPHIN 1 GM in Sodium Chloride 0.9% 100 ML IVPB SCH (20:29)
[2019-01-14] MEDS: MEROPENEM 1 GM/50 ML 1 GM in Premix Bag 1 BAG IVPB SCH ×2 (05:58→14:51)
--- NOTE | 2019-01-14 07:16 | PDOC.EVN ---
Event Note - Event Note Event Note: 30 3/7 weeks. Feels well this AM. No c/o. VSS AF, 104/58, 78. Nephrosomy draining. Awaiting arrangements with Dr. Mcintyre re; NOEL at home.
[2019-01-14] MEDS: Prenatal Vitamin 1 TAB PO SCH (09:00)
[2019-01-14] MEDS: Ferrous Sulfate 325 MG TAB PO SCH (09:00)
[2019-01-14] MEDS: cefTRIAXone\\ROCEPHIN 1 GM in Sodium Chloride 0.9% 100 ML IVPB SCH (20:45)
[2019-01-15] MEDS: Lactated Ringer's 1,000 ML IV SCH (05:21)
[2019-01-15] MEDS: Prenatal Vitamin 1 TAB PO SCH (08:36)
[2019-01-15] MEDS: Ferrous Sulfate 325 MG TAB PO SCH (08:36)
[2019-01-15] MEDS ORDERED: cefTRIAXone\\ROCEPHIN 1 GM VIAL IM SCH ×3 (12:45→14:15)
--- NOTE | 2019-01-15 13:54 | DIS ---
DATE OF ADMISSION: 01/11/2019 DATE OF DISCHARGE: 01/15/2019 ADMITTING DIAGNOSES: 1. Intrauterine at 30 weeks. 2. Pyelonephritis on right side with sepsis, status post percutaneous nephrostomy tube with Pseudomonas. DISCHARGE DIAGNOSIS: 1. Intrauterine at 30 weeks. 2. Pyelonephritis on the right side with sepsis, status post percutaneous nephrostomy tube with Pseudomonas. PROCEDURE PERFORMED: Replacement of nephrostomy tube. CONSULTATION: Urology, Dr. Mcintyre. HOSPITAL COURSE: The patient is a 18-year-old female with an intrauterine at approximately 30 weeks' gestation, complicated by obstruction of her right ureter due to deviation of the uterus requiring a nephrostomy tube on the right side. She became infected with Pseudomonas and was admitted for pyelonephritis, on Rocephin and meropenem. Cultures returned back showing clark sensitivity with sensitivity to Rocephin. Urology consultation had recommended daily IM in office injections for a week once the patient was proven sensitivity to Rocephin and otherwise in-house IV antibiotics for a week. With blood cultures came back positive, recommendations have changed to 2 weeks of treatment. During the course of stay, the patient has remained afebrile and clinically has done very well. She is now on hospital day 5. Plan this morning is for her nephrostomy tube to be replaced prior to discharge. She will get a dose of Rocephin and has an appointment tomorrow with her urologist, where she will continue her outpatient treatment. The patient will be getting a total of 2 weeks of antibiotic coverage or until her urologist discontinues antibiotic use. The patient is being discharged home, again has followup appointment with her urologist, Dr. Mcintyre tomorrow and will need to see Ms. Betsy Cleveland in the next week or so. Job ID: [id number]
[2019-01-15] MEDS ORDERED: Lidocaine 1% PF 5 ML VIAL FS SCH (14:00)
--- NOTE | 2019-01-15 20:46 | PRG ---
DATE OF SERVICE: 01/15/2019 SUBJECTIVE: The patient states she is feeling fine. She is having no complaints. No significant flank pain. Nephrostomy tube was not able to be changed today secondary to scheduling availability. She is currently on the schedule for tomorrow for nephrostomy tube. OBJECTIVE: VITAL SIGNS: Temperature 97.7, pulse 81, respirations 16, blood pressure 99/53, saturation 98% on room air. GENERAL: No apparent distress. Communicative and alert. CARDIOVASCULAR: Regular rate and rhythm. ABDOMEN: Gravid uterus, normal, soft, tender, nondistended. Right nephrostomy tube in place, draining clear yellow urine. EXTREMITIES: Trace edema. LABORATORY EVALUATION: There are no current labs to review. Cultures; blood cultures are positive for Pseudomonas x2 with urine culture being positive. ASSESSMENT AND PLAN: A 18-year-old white female with bacteremia with Pseudomonas secondary to urinary tract infection with obstructed nephrostomy tube. The nephrostomy tube is currently draining, but there is a high risk of biofilm. I would recommend early change of nephrostomy tube. This had currently been scheduled for today, but it is now pending for schedule for tomorrow. She can be n.p.o. after midnight for nephrostomy tube change tomorrow. Continue on IV Rocephin, which will need to continue for a total of two weeks, which will take us to of next week. She can do these in my office with going to the ER over the weekend with orders to get continued Rocephin injections, after which we will probably continue with Omnicef prophylaxis. Ultimately, she may have to get one additional tube change close to her term day unless she is going to deliver early, which the decision will be made with her under ground miner or privacy analyst. I will continue to follow along and make any recommendations appropriate. Job ID: [id number]
[2019-01-16] MEDS ORDERED: Sodium Chloride 0.9% 10 ML ONE (00:26)
[2019-01-16] MEDS: Lactated Ringer's 1,000 ML IV SCH (00:32)
--- NOTE | 2019-01-16 08:34 | PDOC.EVN ---
Event Note - Event Note Event Note: S: Patient is doing well this morning, no complaints. Sleeping comfortably. O: AFVSS Gen - AAO, NAD Abd - soft, NTTP A/P: Patient scheduled for nephrostomy tube replacement this morning and has been NPO since midnight. May be discharged home following procedure. Will follow up with Dr. Mcintyre for repeat Rocephin injections.
[2019-01-16] MEDS: Ferrous Sulfate 325 MG TAB PO SCH (10:30)
[2019-01-16] MEDS: Prenatal Vitamin 1 TAB PO SCH (10:30)
[2019-01-16] MEDS ORDERED: Sodium Bicarbonate 2.5 MEQ/5 ML VIAL ONE (10:59)
[2019-01-16] MEDS ORDERED: Midazolam HCl 2 mg/2 ml Vial ONE (10:59)
[2019-01-16] MEDS ORDERED: Fentanyl 100 MCG/2 ML VIAL ONE (10:59)
[2019-01-16 12:22] VITALS: BP 113/67; TEMP 98.7
[2019-01-16] MEDS ORDERED: cefTRIAXone\\ROCEPHIN 1 GM VIAL IM SCH (14:00)
[2019-01-16] MEDS ORDERED: Lidocaine 1% PF 5 ML VIAL FS SCH (14:00)
--- NOTE | 2019-01-16 14:30 | SPC ---
PERCUTANEOUS RIGHT NEPHROSTOMY EXCHANGE: INDICATIONS: The patient has an indwelling right percutaneous nephrostomy catheter due to right ureteral obstructi on from . The patient is sent for nephrostomy catheter exchange due to urinary infection. FINDINGS: A new 8 Armenian nephrostomy catheter was exchanged over a wire. The pigtail was positioned in the dami l pelvis. Post procedure injection confirmed good position and function of the new nephrostomy cathet er. PROCEDURE IN DETAIL: The indwelling right nephrostomy catheter is prepped and draped. Iodinated contrast was injected thro ugh the indwelling catheter, which confirms adequate position within the renal pelvis. The renal pelv is and right ureter opacify and there is continued evidence of right ureteral obstruction distally fr om the . The pigtail was unlocked. An 0.035 Stiff Glidewire was introduced through the indwelling catheter. Th e pigtail was straightened. The wire was coiled within the renal pelvis. The catheter was withdrawn over the wire under fluoroscopic guidance. A new 8 Armenian nephrostomy catheter was advanced over the wire under fluoroscopic observation and mauricio dance. The catheter was positioned in the renal pelvis. The wire was removed. The pigtail was formed. Contrast was injected which confirmed good position and function of the new catheter. The pigtail wa s locked. The catheter was secured at the skin with suture. A sterile dressing was applied and the ca theter was attached to gravity drainage. There were no problems or complications. POS: [facility]
--- NOTE | 2019-01-16 15:19 | DIS ---
DATE OF ADMISSION: 01/11/2019 DATE OF DISCHARGE: 01/16/2019 ADDENDUM: PRIMARY OB: Betsy Megha, and Dr. Negrito Mcintyre, Urology. The patient was initially scheduled for discharge yesterday following nephrostomy tube replacement. However, due to circumstances out of the patient's control, nephrostomy tube replacement was deferred to this morning. This is now completed and the patient is ready for discharge. She will continue outpatient IM injections of Rocephin for treatment of pyelonephritis and positive blood cultures of Pseudomonas for the next 2 weeks or as directed by her urologist. Discharge orders have been resumed. Job ID: [id number]
--- NOTE | 2019-01-17 11:43 | PQF ---
[employer] Workforce Management Manager [employer] Jaimie Morgan LOLA ELISE MD [id number] CLINICAL DOCUMENTATION CLARIFICATION FORM: POST DISCHARGE Addendum to original discharge summary date: 01/17 Late entry note date: 01/19 DATE: ATTN:LOLA ELISE MD Please exercise your independent, professional judgment in responding to the clarification form. Clinical indicators are provided on the bottom of this form for your review Please check appropriate box(s): Conflicting documentation was noted in the Medical Record, please clarify if patient is being treated/monitored for: [ ] Sepsis [ x ] Bacteremia [ ] Other diagnosis [ ] Unable to determine For continuity of documentation, please document condition throughout progress notes and discharge summary. Thank You. CLINICAL INDICATORS - SIGNS / SYMPTOMS/ LABS - Pyelonephritis, right sided with sepsis at 30 weeks gestation-H&P, 01/11, Matthew Adams MD - Pseudomonas urosepsis-H&P, 01/11, Matthew Adams MD - WBC:14.0-H&P, 01/11, Matthew Adams MD - Bacteremia with pseudomonas sec to UTI- Progress note, 01/15, Francisco Javier Mahan MD - Temp: 97.7, Pulse: 81, RR:16- Progress note, 01/15, Francisco Javier Mahan MD RISK FACTORS - Intrauterine at 30 weeks- DS, 01/15, LOLA ELISE MD - Replacement of nephrostomy tube-DS, 01/15, LOLA ELISE MD TREATMENT -Rocephin.IV- MAR, 01/10 (This form is maintained as a part of the permanent medical record) 2014 [employer]. All Rights Reserved Milton Flynn [not provided] [not provided] MTDD
--- NOTE | 2019-01-19 15:20 | EKG ---
Test Reason : Blood Pressure : / mmHG Vent. Rate : 118 BPM Atrial Rate : 118 BPM P-R Int : 132 ms QRS Dur : 072 ms QT Int : 294 ms P-R-T Axes : 036 020 011 degrees QTc Int : 412 ms Sinus tachycardia Otherwise normal ECG Confirmed by CUAUHTEMOC CAMACHO, LOLA (12), restaurant expeditor DARIANA SCALES ([id number]) on 01/19/2019 3:19:49 PM Referred By: Confirmed By:LOLA POSADAS MD
== END 2019-01-16 14:10 | disposition home health service (06) | DRG 832 ==
LOC: ERS 20:36 → 3SW 01-11 00:26
PROVIDERS: ADMIT Obstetrics & Gynecology; ATTEND Obstetrics & Gynecology
PROC: 0T25X0Z Change Drainage Device in Kidney, External Approach (ICD-10-PCS; principal; 2019-01-16)
DX: O98.813 Other maternal infectious and parasitic diseases complicating pregnancy, third trimester (principal); O23.03 Infections of kidney in pregnancy, third trimester; N13.6 Pyonephrosis; T83.512A Infection and inflammatory reaction due to nephrostomy catheter, initial encounter; R78.81 Bacteremia; Z3A.30 30 weeks gestation of pregnancy
CPT/HCPCS: 36415; 50431; 50436; 59025; 75984; 76770; 80048; 80053; 81003; 81015; 83605; 85025; 87040; 87077; 87086; 87149; 87186; 87804; 93005; 96361; 96365; 96375; C1729; C1769; J0696; J2001; J2185; J2250; J3010; J3480; J3490; J7120

== ENCOUNTER 2019-01-19 14:22 | Day surgery (SDC) | payer OTHER ==
[2019-01-19] MEDS ORDERED: cefTRIAXone\\ROCEPHIN 1 GM VIAL IM SCH (14:45)
== END 2019-01-19 15:30 | disposition home or self-care (01) ==
LOC: L&D/OP 14:22
PROVIDERS: ATTEND Urology
DX: O23.40 Unspecified infection of urinary tract in pregnancy, unspecified trimester (principal); B96.5 Pseudomonas (aeruginosa) (mallei) (pseudomallei) as the cause of diseases classified elsewhere; O9A.219 Injury, poisoning and certain other consequences of external causes complicating pregnancy, unspecified trimester; T83.092A Other mechanical complication of nephrostomy catheter, initial encounter; Z79.899 Other long term (current) drug therapy; Z3A.00 Weeks of gestation of pregnancy not specified
CPT/HCPCS: J0696

== ENCOUNTER 2019-01-20 15:51 | Day surgery (SDC) | payer OTHER ==
[2019-01-20] MEDS ORDERED: Lidocaine 1% MPF 2 ML VIAL FS PRN (16:18)
[2019-01-20 16:21] VITALS: BP 100/58; TEMP 98.2
[2019-01-20] MEDS ORDERED: cefTRIAXone\\ROCEPHIN 1 GM VIAL IM SCH (17:00)
== END 2019-01-20 16:30 | disposition home or self-care (01) ==
LOC: L&D/OP 15:51
PROVIDERS: ATTEND Urology
DX: O23.40 Unspecified infection of urinary tract in pregnancy, unspecified trimester (principal); B96.5 Pseudomonas (aeruginosa) (mallei) (pseudomallei) as the cause of diseases classified elsewhere; O9A.219 Injury, poisoning and certain other consequences of external causes complicating pregnancy, unspecified trimester; T83.092A Other mechanical complication of nephrostomy catheter, initial encounter; Z3A.00 Weeks of gestation of pregnancy not specified; Z79.899 Other long term (current) drug therapy
CPT/HCPCS: J0696; J2001

== ENCOUNTER 2019-02-01 12:27 | Day surgery (SDC) | payer OTHER ==
[~2019-02-01 12:27] MED LIST: Iopamidol 300 61% 50 ML VIAL FS ONE
[2019-02-01] MEDS ORDERED: Fentanyl 100 MCG/2 ML VIAL ONE (14:18)
[2019-02-01] MEDS ORDERED: Sodium Chloride 0.9% 30 ML ONE (14:20)
--- NOTE | 2019-02-01 15:14 | ULT ---
Exam: Limited ultrasound of the right kidney. Eval for heart tones. COMPARISON: none FINDINGS: Targeted sonographic imaging of the right kidney demonstrates severe hydronephrosis Preprocedure heart tones were 118 bpm. Post procedure heart tones were 126 beats per. IMPRESSION: Findings as above.
[2019-02-01 15:20] VITALS: BP 106/67; TEMP 97.5; BMI 25.7
--- NOTE | 2019-02-01 15:23 | SPC ---
Exam: Fluoroscopically guided nephrostomy tube exchange HISTORY: patient with severe right-sided hydronephrosis. Tube is not draining. Comparison 01/16/2019 Exposure 8 minutes, 115,990 mG^cm2 FINDINGS: Successful right nephrostomy tube exchange. A new 8 Macedonian nephrostomy catheter was placed. Confirmation of positioning was confirmed with contrast administration TECHNIQUE: Consent was obtained to perform an exchange of a right nephrostomy tube catheter. Multiple attempts were made to pass different wires through the nephrostomy tube. However, a wire would not pass and gritty material was noted along the surface of the tube as well as within the tube at the wi re was pulled out. Findings suggest significant debris within the catheter. The catheter was cut and had a be removed. Through the tract, a 5 Macedonian tapered sheath was advanced, into the collecting system. Wire was passed through the 5 Macedonian sheath into the intrarenal collection system. The sheath was exchanged for a 8 Macedonian nephrostomy tube. Tube was appropriately position of the coil was formed. Contrast was administered to document appropriate location. Catheter was sutured to the patient. Patient tolerated the procedure well. No immediate or postprocedure complications. Conscious sedation: 50 mcg fentanyl IV IMPRESSION: Successful 8 Macedonian right nephrostomy tube exchange. Transcribed Date/Time: 02/01/2019 3:33 PM
[2019-02-01] MEDS ORDERED: FLU VACC QS2019-20(6MOS UP)/PF 60 MCG/0.5 ML SYRINGE IM ONE (15:30)
== END 2019-02-01 15:10 | disposition home or self-care (01) ==
LOC: SPEC 12:27
PROVIDERS: ATTEND Urology
PROC: 0T25X0Z Change Drainage Device in Kidney, External Approach (ICD-10-PCS; principal; 2019-02-01)
DX: O99.89 Other specified diseases and conditions complicating pregnancy, childbirth and the puerperium (principal); N99.522 Malfunction of incontinent external stoma of urinary tract; N13.30 Unspecified hydronephrosis; Y84.6 Urinary catheterization as the cause of abnormal reaction of the patient, or of later complication, without mention of misadventure at the time of the procedure; Z3A.33 33 weeks gestation of pregnancy
CPT/HCPCS: 50431; 50436; 75984; C1729; C1769; J3010; Q9967

== ENCOUNTER 2019-02-20 15:24 | Inpatient (IN) | payer MEDICAID, SELFPAY ==
[2019-02-20 15:08] VITALS: BMI 27.4
[~2019-02-20 15:24] MED LIST changes: +Bupivacaine 0.25% HCL 30 ML VIAL ONE; +HYDROcodone/Acetaminophen 5/325 mg Tablet PO PRN; +Ibuprofen 800 MG TAB PO PRN; -Iopamidol 300 61% 50 ML VIAL FS ONE; +Lidocaine 1% (PF) 30 ML VIAL SC PRN; +Methylergonovine 0.2 MG/ML VIAL IM PRN; +Misoprostol 200 MCG TAB PR PRN; +Ondansetron PF 4 MG/2 ML Vial IVP PRN; +Promethazine HCl 25 MG/ML VIAL IM PRN; +hydrALAZINE 20 MG/ML VIAL SLOW IVP PRN
[2019-02-20] MEDS ORDERED: Penicillin G Potassium 5 MILL.UNITS in Sodium Chloride 0.9% 100 ML IVPB SCH (15:30)
[2019-02-20] MEDS ORDERED: Lactated Ringer's 1,000 ML IV SCH (15:30)
[2019-02-20] MEDS ORDERED: Misoprostol 100 MCG TAB ONE (17:04)
[2019-02-20 17:33] LABS: Hemoglobin 10.8 g/dL (12.0-16.0); Mean Corpuscular HGB CONC 33.2 g/dL (32.0-36.0); Mean Corpuscular Hemoglobin 28.9 pg (25.0-35.0); Mean Platelet Volume 8.4 fL (7.4-10.4); Platelet Count 302 thou/uL (130-400); Red Blood Cell (RBC) Count 3.75 mill/uL (4.00-5.20); White Blood Cell (WBC) Count 16.2 thou/uL (4.8-10.8)
[2019-02-20] MEDS: Misoprostol 100 MCG TAB PO SCH ×2 (18:06→21:30)
[2019-02-20 18:12] LABS: Syphilis Antibody Nonreactive (Nonreactive); Syphilis Antibody Index 0.04 S/CO (<1.00 Non-Reactive)
[2019-02-20 18:15] LABS: HBSAg Index 0.17 S/CO (0-0.99); Hep B Surf Ag Non-Reactive S/CO (NonReactive)
--- NOTE | 2019-02-20 20:37 | PDOC.LDHP ---
Labor and Delivery H&P Chief complaint: other (Incrdeased kidney pain) HPI: Patient arrived today to ER complaining of increased right kidney pain. Her nephrostomy tube has been in the process of occluding again. On Monday she saw her urologist who confirmed her tube was occluding again, therefore worsening her hydronephrosis. Current gestational age (weeks): 35 (and 5 days) Grav: 2 Para: 1 OB History Details: G1 at 37 weeks for hydronephrosis. Current complications: none (Hydronephrosis, right,) Abnormal US findings: Yes (Moderate right hydronephrosis) Past Medical History: Urosepsis from Strep pseudomonasis Current medications: pre- vitamins, other (macrobid 50mg PO QD) Previous surgical history: other (stomach biopsy) Allergies/Adverse Reactions: Allergies Allergy/AdvReac Type Severity Reaction Status Date / Time No Known Allergies Allergy Verified 02/20/19 15:05 Social history: none - Physical Exam Vital signs reviewed and normal: yes (109/57, HR 90,) General: NAD Lungs: nonlabored breathing Abdomen: gravid FHT: category 1 - Vaginal Exam cm dilated: 1 Effacement: 0% Station: -3 - OB Labs Blood type: A RH: positive Antibody Screen: negative HIV: negative RPR: negative HEPSAg: negative 1 hour GCT: negative GBS: unknown Urine drug screen: negative Rubella: immune - Assessment L&D Assessment: medically indicated induction - Plan Plan: admit to L&D, cervical ripening, GBS antibiotic prophylaxis -: anticipate Steroid benefits x 48+ hours achieved CT stone protocol at 24 hours post delivery.
[2019-02-20] MEDS: Penicillin G 2.5 MILL.units 2.5 MILL.UNITS in Premix Bag 1 BAG IVPB SCH ×2 (21:23→21:25)
[2019-02-20] MEDS: Butorphanol Tartrate 1 MG/ML VIAL SLOW IVP PRN (23:00)
[2019-02-21] MEDS: Misoprostol 100 MCG TAB PO SCH ×4 (00:30→12:54)
[2019-02-21] MEDS: Butorphanol Tartrate 1 MG/ML VIAL SLOW IVP PRN ×2 (01:35→03:50)
[2019-02-21] MEDS: Penicillin G 2.5 MILL.units 2.5 MILL.UNITS in Premix Bag 1 BAG IVPB SCH ×3 (01:35→09:57)
[2019-02-21] MEDS ORDERED: Oxytocin 10 UNITS/ML VIAL ONE (07:35)
[2019-02-21] MEDS ORDERED: NS w/ Oxytocin 10 units 500 ML ONE (07:36)
[2019-02-21] MEDS ORDERED: NS w/ Oxytocin 10 units 500 ML IVPB PRN (07:44)
[2019-02-21] MEDS ORDERED: Fentanyl 4 mcg/Bup 0.1% Cadd 100 ML ONE (08:29)
[2019-02-21] MEDS ORDERED: ePHEDrine/0.9% NaCl/PF SYRINGE 50 mg/10 ml SLOW IVP PRN (09:13)
[2019-02-21] MEDS ORDERED: diphenhydrAMINE 50 MG/ML VIAL IVP PRN (09:13)
[2019-02-21] MEDS ORDERED: Promethazine HCl 25 MG/ML VIAL IM PRN (09:13)
[2019-02-21] MEDS ORDERED: Naloxone HCl 0.4 mg/ml Vial IVP PRN ×2 (09:13)
[2019-02-21] MEDS ORDERED: Lactated Ringer's 500 ML IV PRN (09:13)
[2019-02-21] MEDS ORDERED: Acetaminophen 325 MG TAB PO PRN (09:13)
[2019-02-21] MEDS ORDERED: Ondansetron PF 4 MG/2 ML Vial IVP PRN ×2 (09:13→18:34)
[2019-02-21] MEDS ORDERED: Communication Order-Pharmacy FS SCH (09:15)
[2019-02-21] MEDS ORDERED: Fentanyl 4 mcg/Bupivacaine 0.1% Cassette 100 ML EPIDURAL SCH (09:15)
[2019-02-21] MEDS: NS / Oxytocin 40 units/1000ml 1,000 ML IV PRN ×2 (16:06→17:15)
[2019-02-21] MEDS ORDERED: Misoprostol 200 MCG TAB ONE (16:12)
[2019-02-21] MEDS ORDERED: FLU VACC QS2019-20(6MOS UP)/PF 60 MCG/0.5 ML SYRINGE IM ONE (17:30)
--- NOTE | 2019-02-21 18:30 | PDOC.OPDEL ---
OB Operative/Delivery Note Delivery Dr/Surgeon: Qi Cleveland Pre-Delivery Diagnosis: active labor, medically indicated induction Procedure/Post Delivery Dx: spontaneous vaginal delivery Weeks gestation: 35 (and 6 days) Anesthesia: epidural - Findings A Sex: male - Additional Findings/Plan Placenta delivered: spontaneous Repaired Obstetrical Laceration: none Estimated blood loss: 300mL Post delivery plan: routine recovery
[2019-02-21] MEDS ORDERED: NS / Oxytocin 40 units/1000ml 1,000 ML IV SCH (18:34)
[2019-02-21] MEDS ORDERED: HYDROcodone/Acetaminophen 5/325 mg Tablet PO PRN ×2 (18:34)
[2019-02-21] MEDS ORDERED: Bisacodyl 10 MG SUPP PR PRN (18:34)
[2019-02-21] MEDS ORDERED: hydrALAZINE 20 MG/ML VIAL SLOW IVP PRN (18:34)
[2019-02-21] MEDS ORDERED: Milk Of Magnesia 30 ML UDCUP PO PRN (18:34)
[2019-02-21] MEDS ORDERED: Adacel (T-DAP) 0.5 ML SYRINGE IM ONE (18:34)
[2019-02-21] MEDS ORDERED: diphenhydrAMINE 25 MG CAP PO PRN (18:34)
[2019-02-21] MEDS ORDERED: Methylergonovine 0.2 MG/ML VIAL IM PRN (18:34)
[2019-02-21] MEDS ORDERED: Benzocaine-Menthol 82.5 ML CAN TOP PRN (18:34)
[2019-02-22] MEDS: Ibuprofen 800 MG TAB PO SCH ×4 (04:48→21:36)
[2019-02-22] MEDS: Docusate Calcium (SURFAK) 240 MG CAP PO SCH ×3 (04:48→20:16)
[2019-02-22] MEDS: Ferrous Sulfate 325 MG TAB PO SCH ×2 (09:07→17:42)
[2019-02-22] MEDS: Prenatal Vitamin 1 TAB PO SCH (09:07)
[2019-02-22] MEDS: Penicillin G 2.5 MILL.units 2.5 MILL.UNITS in Premix Bag 1 BAG IVPB SCH (10:03)
[2019-02-22] MEDS: Misoprostol 100 MCG TAB PO SCH (10:03)
[2019-02-22] MEDS ORDERED: Loperamide HCl 2 MG CAP PO PRN (13:51)
[2019-02-22] MEDS ORDERED: Sodium Chloride 0.9% 10 ML ONE (13:56)
--- NOTE | 2019-02-22 14:54 | CT ---
ABDOMEN CT WITHOUT CONTRAST PELVIC CT WITHOUT CONTRAST: HISTORY: . Right flank pain. Evaluate for renal calculus. Nephrostomy tube placed in December. COMPARISON: None. FINDINGS: Abdomen CT: Lung bases:Clear. Heart size: Normal heart size. Aorta: Normal caliber aorta. Solid organs: Limited evaluation by the lack of IV contrast. Grossly no solid organ abnormality. Lymph nodes: No gastrohepatic, retrocrural or periportal lymphadenopathy. Gallbladder: Unremarkable. Mesentery: No mass, lymphadenopathy, free air or free fluid. Kidneys: Right-sided percutaneous nephrostomy tube is noted. The pigtail is in the right renal pelvis . Small punctate 1 mm calculus in the lower pole right kidney. No evidence of right-sided obstructive uropathy. No evidence of left-sided obstructive uropathy. Alimentary canal: Limited evaluation by technique. No evidence of bowel obstruction. Ileocecal juncti on is unremarkable. Suggestion of a normal caliber appendix. No obvious inflammation at the cecal apex. Scattered fecal material in a nondistended, nondilated colon. CT PELVIS: Enlarged heterogeneous uterus with possible small amount of blood products in the lower uterine segme nt vaginal vault. Findings are compatible with state. Trace amount of free fluid in the pelvis. Urinary bladder: Unremarkable. Osseous structures: No lytic or blastic lesions. IMPRESSION: 1. Appropriate positioning of a right-sided percutaneous nephrostomy. Bilaterally no evidence of obst ructive uropathy. 2. changes in the uterus. Transcribed Date/Time: 02/22/2019 3:04 PM
[2019-02-22 15:12] LABS: #Basophils 0.1 thou/uL (0.0-0.2); #Eosinphils 0.1 thou/uL (0.0-0.7); #Lymphocytes 1.7 thou/uL (1.20-3.40); #Monocytes 0.8 thou/uL (0.11-0.59); #Neutrophils 12.2 thou/uL (1.40-6.50); %Basophils 0.4 % (0.0-1.0); %Eosinophils 0.8 % (0.0-10.0); %Lymphocytes 11.7 % (28.0-48.0); %Monocytes 5.1 % (0.0-4.0); %Neutrophils 82.1 % (31.0-61.0); Hemoglobin 12.1 g/dL (12.0-16.0); Mean Corpuscular HGB CONC 32.8 g/dL (32.0-36.0); Mean Corpuscular Hemoglobin 28.6 pg (25.0-35.0); Mean Corpuscular Volume 87.2 fL (78.0-98.0); Mean Platelet Volume 7.3 fL (7.4-10.4); Platelet Count 316 thou/uL (130-400); RBC Distribution Width 12.9 % (11.5-14.5); Red Blood Cell (RBC) Count 4.23 mill/uL (4.00-5.20); White Blood Cell (WBC) Count 14.8 thou/uL (4.8-10.8)
--- NOTE | 2019-02-22 16:34 | CON ---
DATE OF CONSULTATION: 02/22/2019 CONSULTING: Betsy Cleveland. CONSULTED: Dr. Mcintyre. REASON FOR CONSULTATION: Nephrostomy tube issues and possible infection. HISTORY OF PRESENT ILLNESS: Mrs. Underwood is a 18-year-old white female, G2, P2, recently delivered her baby, who is currently in the NICU. He is doing well. She is known to me for history of right-sided hydronephrosis secondary to uterine compression from uterine lie, resulting in a blockage. Due to excessive pain and infection, she had a nephrostomy tube placed and has had a suzie course since that time. We had elected that if she were to deliver her baby, then we would go ahead and take her nephrostomy tube out. She was recently admitted to the hospital for uncontrolled right-sided flank pain. As per the plan, she had already received steroids for lung development and underwent induction and has delivered her baby. CT per my request has already been completed, which demonstrates no evidence of ureterolithiasis or obstructive uropathy. I have been consulted for decision on whether or not keep the nephrostomy tube and for any further recommendations. On my discussion with the patient, she states that she is feeling okay. She is still having some right-sided flank discomfort, although it is relatively better at this time. She denies any fevers. She states she is otherwise doing well. ALLERGIES: NONE. CURRENT MEDICATIONS: 1. vitamins. 2. Macrobid prophylaxis. PAST MEDICAL HISTORY: Urosepsis from strep Pseudomonas. PAST SURGICAL HISTORY: 1. Nephrostomy tube placement. 2. Stomach biopsy. FAMILY HISTORY: Noncontributory. SOCIAL HISTORY: The patient denies alcohol abuse, illicit drug use, or tobacco abuse. REVIEW OF SYSTEMS: A 12-point review of systems was reviewed and negative, otherwise unless commented on the HPI. PHYSICAL EXAMINATION: VITAL SIGNS: Temperature 97.6, pulse 99, respirations 20, blood pressure 114/69, and saturation 100% on room air. GENERAL: No apparent distress, communicative, and alert. HEENT: Normocephalic and atraumatic. Pupils are symmetric and round. Trachea midline. Moist mucous membranes. CARDIOVASCULAR: Regular rate and rhythm. Normal S1 and S2. Symmetric pulses. CHEST: No increased work of breathing. Symmetric expansion of the lungs. Clear anteriorly. ABDOMEN: Soft, nontender, and nondistended. uterus, which is still slightly enlarged. BACK: Right nephrostomy tube in place with still clear yellow urine draining. There is no evidence of surrounding cellulitis. : Deferred at this time. EXTREMITIES: Trace edema bilaterally. No clubbing or cyanosis. MUSCULOSKELETAL: No joint deformity or joint erythema noted. Full range of motion. NEUROLOGIC: Cranial nerves 2 through 12 grossly intact. No focal or sensory motor deficits identified. PSYCHIATRIC: Alert and oriented x3. Appropriate mood and affect. SKIN: Warm and dry. No rashes or lesions. Good turgor. LYMPH: There are no enlarged lymph nodes in the cervical, supraclavicular, axillary, or inguinal regions. LABORATORY EVALUATION: The full set of labs are in the [facility] system, which I have reviewed. Of note, the patient's white count was 16.2 yesterday, 14.[address] done today without contrast demonstrates no evidence of obstructive uropathy. No hydronephrosis. No nephrolithiasis. There is a right-sided percutaneous nephrostomy tube in the correct location. changes of the uterus are noted. ASSESSMENT AND PLAN: A 18-year-old white female with a right-sided nephrostomy tube for uterine obstruction and hydronephrosis with pain with elevated white count currently. It is possible that she is starting to get infection, but has not demonstrated any signs of infection currently. I have removed the nephrostomy tube already. She has a dressing in place. I would recommend rechecking a CBC tomorrow. If her white count goes down and she has no fevers, I do not think antibiotics are necessary. Her Macrobid prophylaxis can be stopped at this point. If her white count stays elevated or increases or she develops a fever, then I would treat her with Omnicef or any other antibiotic, which is compatible with . Levaquin probably should not be used since she is going to be breast-feeding. Once she has been deemed stable from a urologic standpoint without infection, she can be discharged home and I will plan to see her back in approximately 2 months with a renal ultrasound done prior for finalization to ensure that there is resolution of all hydronephrosis and no further problems. I have already counseled her that I did not recommend that she become again or she would risk having the same problem. She agrees and states that she will probably avoid future and will adopt any future children if she desires. I will sign out to Dr. Abner Louis, who is covering for me this weekend on-call. Job ID: [id number]
--- NOTE | 2019-02-22 16:51 | PDOC.PP ---
Post Progress Note Post Day #: 1 Subjective: Patient is feeling better. diarrhea has stopped after taking the lomotil. Her kidney is not longer hurting, but feels funny. she is on the way to the NICU to see the infant. PO intake tolerated: yes Flatus: yes Ambulation: yes Vital Signs (12 hours) Temp Pulse Resp BP Pulse Ox 02/22/19 12:03 97.6 F 99 20 114/69 02/22/19 08:40 98.2 F 86 20 106/60 100 Weight Weight 155 lb - Physical Examination General: NAD Respiratory: non-labored breathing Abdominal: + bowel sounds, lochia (minimal) Extremities: negative homans (B) Skin: no rash Neurological: no gross focal deficits Psychiatric: A&Ox3, normal affect Result Diagrams: 02/22/19 15:04 Additional Labs: Post Labs Blood Type A POSITIVE 02/20/19 16:11 Hep Bs Antigen Non-Reactive S/CO (NonReactive) 02/20/19 16:11 (1) (spontaneous vaginal delivery) Code(s): O80 - ENCOUNTER FOR FULL-TERM UNCOMPLICATED DELIVERY Status: Acute (2) Hydronephrosis Code(s): N13.30 - UNSPECIFIED HYDRONEPHROSIS Status: Acute - Assessment/Plan A: now P2 s/p following medically indicated induction of labor for r. hydronephrosis and nephrostomy tube partial occlusion CT neg for nephrolithiasis Dr. Harmon d/c nephrotomy tube this afternoon Will repeat CBC in am to ensure WBC are dropping, if not will start on PO ABX for UTI per consultation with urologist P: routine care repeat cbc in am Evaluated for discharge home tomorrow.
[2019-02-23 06:25] LABS: #Eosinphils 0.2 thou/uL (0.0-0.7); #Lymphocytes 2.8 thou/uL (1.20-3.40); #Monocytes 0.9 thou/uL (0.11-0.59); #Neutrophils 7.8 thou/uL (1.40-6.50); %Basophils 0.2 % (0.0-1.0); %Eosinophils 1.6 % (0.0-10.0); %Lymphocytes 23.6 % (28.0-48.0); %Neutrophils 66.6 % (31.0-61.0); Hemoglobin 11.5 g/dL (12.0-16.0); Mean Corpuscular HGB CONC 33.1 g/dL (32.0-36.0); Mean Corpuscular Hemoglobin 28.7 pg (25.0-35.0); Mean Corpuscular Volume 86.5 fL (78.0-98.0); Mean Platelet Volume 7.3 fL (7.4-10.4); Platelet Count 296 thou/uL (130-400); Red Blood Cell (RBC) Count 4.02 mill/uL (4.00-5.20); White Blood Cell (WBC) Count 11.7 thou/uL (4.8-10.8)
[2019-02-23] MEDS: Ibuprofen 800 MG TAB PO SCH ×2 (06:25→14:42)
[2019-02-23] MEDS: Ferrous Sulfate 325 MG TAB PO SCH ×2 (07:29→16:53)
[2019-02-23 08:29] VITALS: BP 110/73; TEMP 98
--- NOTE | 2019-02-23 10:04 | PDOC.PP ---
Post Progress Note Post Day #: 2 Subjective: Patient is feeling much better. No kidney pain. just cramping with pumping. PO intake tolerated: yes Flatus: yes Ambulation: yes Vital Signs (12 hours) Temp Pulse Resp BP Pulse Ox 02/23/19 08:18 98.0 F 68 16 110/73 96 02/23/19 00:48 98.1 F 61 16 110/56 L Weight Weight 155 lb - Physical Examination General: NAD Respiratory: non-labored breathing Abdominal: lochia (minimal) Skin: no rash Neurological: no gross focal deficits Result Diagrams: 02/23/19 06:09 Additional Labs: Post Labs Blood Type A POSITIVE 02/20/19 16:11 Hep Bs Antigen Non-Reactive S/CO (NonReactive) 02/20/19 16:11 (1) (spontaneous vaginal delivery) Code(s): O80 - ENCOUNTER FOR FULL-TERM UNCOMPLICATED DELIVERY Status: Acute (2) Hydronephrosis Code(s): N13.30 - UNSPECIFIED HYDRONEPHROSIS Status: Acute - Assessment/Plan A: now p2 s/p following IOL for hydronephrosis. P: Discharge home.
[2019-02-23] MEDS: Prenatal Vitamin 1 TAB PO SCH (10:29)
[2019-02-23] MEDS: Docusate Calcium (SURFAK) 240 MG CAP PO SCH (10:30)
[2019-02-24] MEDS ORDERED: FLU VACC QS2019-20(6MOS UP)/PF 60 MCG/0.5 ML SYRINGE IM ONE (09:00)
== END 2019-02-23 16:55 | disposition home or self-care (01) | DRG 806 ==
LOC: L&D/OP 15:24 → L&D 15:25 → 3SW 02-22 04:40
PROVIDERS: ADMIT Obstetrics & Gynecology; ATTEND Obstetrics & Gynecology
PROC: 10E0XZZ Delivery of Products of Conception, External Approach (ICD-10-PCS; principal; 2019-02-20)
PROC: 10907ZC Drainage of Amniotic Fluid, Therapeutic from Products of Conception, Via Natural or Artificial Opening (ICD-10-PCS; 2019-02-20)
PROC: 3E0P7VZ Introduction of Hormone into Female Reproductive, Via Natural or Artificial Opening (ICD-10-PCS; 2019-02-20)
PROC: 3E033VJ Introduction of Other Hormone into Peripheral Vein, Percutaneous Approach (ICD-10-PCS; 2019-02-20)
DX: O99.89 Other specified diseases and conditions complicating pregnancy, childbirth and the puerperium (principal); N13.30 Unspecified hydronephrosis; Z37.0 Single live birth; Z3A.37 37 weeks gestation of pregnancy
CPT/HCPCS: 36415; 51702; 74176; 85025; 85027; 86780; 86850; 86900; 86901; 87340; 90471; 90686; G0008; J0595; J1200; J2540; J2590; J3490; S0020